=== PATIENT | male | born 1965 | race African-American/Black ===

== ENCOUNTER 2018-01-19 10:21 | Emergency (ER) | payer OTHER ==
[~2018-01-19] VITALS: Ht 167.6 cm; Wt 77.6 kg
--- NOTE | 2018-01-19 10:30 | NUR ---
PATIENT TO ED DT +SI WITH PLAN TO RUN IN TRAFFIC, -HI. SEEKS VOLUNTARY PLACEMENT. PATIENT NOT IN DISTRESS. VSS
--- NOTE | 2018-01-19 10:36 | NUR ---
NIKITA AT [facility] STATES THAT THERE ARE [facility]ALE BEDS AVAILABLE FOR THIS PT WHEN HE IS MEDICALLY CLEARED
[2018-01-19 11:09] LABS: APPEARANCE,URINE Clear (CLEAR); BILIRUBIN,URINE Negative (NEGATIVE); BLOOD, URINE Negative Ery/uL (NEGATIVE); COLOR,URINE Yellow (YELLOW); KETONES,URINE Negative (NEGATIVE); LEUKOCYTE ESTERASE ,URINE Negative (NEGATIVE); NITRITE, URINE Negative (NEGATIVE); PH,URINE 6.5 (5.0-8.0); PROTEIN,URINE Negative (NEGATIVE); UGLUCOSE Negative (NEGATIVE); UROBILINOGEN,URINE 0.2 EU/dL (0.2)
[2018-01-19 11:11] LABS: BASOPHILS # (AUTO) 0.1 /CMM (0.0-0.2); BASOPHILS % (AUTO) 3.1 % (0.0-2.0); EOSINOPHILS % (AUTO) 0.1 % (0.0-6.0); HEMATOCRIT 41 % (39-51); HEMOGLOBIN 13.6 g/dL (13.5-17.5); LYMPHOCYTES # (AUTO) 1.4 /CMM (0.8-4.8); LYMPHOCYTES % (AUTO) 33.2 % (20.0-44.0); MEAN CORPUSCULAR HEMOGLOBIN 30 PG (26.0-33.0); MEAN CORPUSCULAR HGB CONC 34 g/dl (31.0-36.0); MEAN CORPUSCULAR VOLUME 89 fL (80-96); MONOCYTES # (AUTO) 0.4 /CMM (0.1-1.30); MONOCYTES % (AUTO) 9.9 % (2.0-12.0); NEUTROPHILS # (AUTO) 2.3 /CMM (1.8-8.9); NEUTROPHILS % (AUTO) 53.7 % (43.0-81.0); PLATELET COUNT (AUTO) 369 /CMM (150-450); RDW COEFFICIENT OF VARIATION 13.8 (11.5-15.0); RED BLOOD CELL COUNT(AUTO) 4.58 MIL/uL (4.5-6.0); WHITE BLOOD COUNT (AUTO) 4.2 K/uL (4.3-11.0)
[2018-01-19 11:15] LABS: CALCIUM, SERUM 8.9 mg/dL (8.5-10.1); CARBON DIOXIDE 33 mmol/L (21-32); CHLORIDE 99 mmol/L (98-107); CREATININE 1.1 mg/dL (0.6-1.3); GLUCOSE 88 mg/dL (74-106); POTASSIUM 3.4 mmol/L (3.5-5.1); SODIUM SERUM 135 mmol/L (136-145); UREA NITROGEN, BLOOD 11 mg/dL (7-18)
--- NOTE | 2018-01-19 11:19 | NUR ---
CALLED FOR FOOD
[2018-01-19 11:21] LABS: ALANINE AMINOTRANSFERASE 55 U/L (12-78); ALBUMIN 3.7 g/dL (3.4-5.0); ALCOHOL, BLOOD < 3 mg/dL (0-0); ALKALINE PHOSPHATASE 80 U/L (46-116); ASPARTATE AMINOTRANSFERASE 46 U/L (15-37); BILIRUBIN,DIRECT 0.2 mg/dL (0.0-0.2); BILIRUBIN,TOTAL 0.7 mg/dL (0.2-1.0); TOTAL PROTEIN, SERUM 8.5 g/dL (6.4-8.2)
[2018-01-19] MEDS ORDERED: IBUPROFEN 600 MG TABLET PO ONE ×2 (11:56→12:00)
--- NOTE | 2018-01-19 13:02 | NUR ---
CALLED [facility] AND FAXED OVER PAPERWORK TO [facility] IN INTAKE.
--- NOTE | 2018-01-19 13:20 | NUR ---
PT HAS BEEN ACCEPTED TO [facility]. DR SNOW IS THE ACCEPTING MD. NUMBER FOR REPORT IS [phone]
[2018-01-19] MEDS ORDERED: POTASSIUM CHLORIDE 20 MEQ TAB.PRT.SR PO ONE ×2 (13:30→13:31)
--- NOTE | 2018-01-19 13:30 | NUR ---
CALLED [facility] AND SPOKE TO [facility]ARD FOR TANSPORT TO [facility], WAS GIVEN AN ETA OF 30 MIN. TRIP #:
[2018-01-19 13:32] VITALS: BP 128/85
--- NOTE | 2018-01-19 13:39 | NUR ---
REPORT GIVEN TO BLANCHE LUGO FOR [facility]
--- NOTE | 2018-01-19 14:22 | NUR ---
PATIENT WAS PICKED UP BY [facility]
== END 2018-01-19 14:24 | disposition home or self-care (01) ==
LOC: ER 10:22
DX: R45.851 Suicidal ideations (principal); F14.10 Cocaine abuse, uncomplicated; F32.9 Major depressive disorder, single episode, unspecified; I10 Essential (primary) hypertension; J45.909 Unspecified asthma, uncomplicated; F17.200 Nicotine dependence, unspecified, uncomplicated
CPT/HCPCS: 36415; 80048; 80076; 80305; 81001; 85025; 99284; A4606; G0480; Z7610; 81000-TC

== ENCOUNTER 2019-05-11 22:44 | Emergency (ER) | payer OTHER ==
[~2019-05-11] VITALS: Ht 170.2 cm; Wt 77.1 kg
[2019-05-12 02:20] VITALS: BP 155/98
--- NOTE | 2019-05-12 02:20 | NUR ---
PT AAOX4. AMBULATORY. C/O +SI X3DAYS, PLAN TO RUN INTO TRAFFIC, -HI, +AUDITORY HALLUCINATIONS. PT PLACED IN GOWN, BELONINGS IN LOCKER. VSS.
--- NOTE | 2019-05-12 02:37 | NUR ---
URINE COLLECTED AND LABS.
[2019-05-12 02:43] LABS: BASOPHILS % (AUTO) 1.2 % (0.0-2.0); EOSINOPHILS % (AUTO) 0.3 % (0.0-6.0); HEMATOCRIT 37 % (39-51); HEMOGLOBIN 12.6 g/dL (13.5-17.5); LYMPHOCYTES # (AUTO) 1.2 /CMM (0.8-4.8); LYMPHOCYTES % (AUTO) 43.2 % (20.0-44.0); MEAN CORPUSCULAR HGB CONC 34 g/dl (31.0-36.0); MEAN CORPUSCULAR VOLUME 91 fL (80-96); MONOCYTES # (AUTO) 0.4 /CMM (0.1-1.30); MONOCYTES % (AUTO) 15.6 % (2.0-12.0); NEUTROPHILS # (AUTO) 1.1 /CMM (1.8-8.9); NEUTROPHILS % (AUTO) 39.7 % (43.0-81.0); PLATELET COUNT (AUTO) 219 /CMM (150-450); RED BLOOD CELL COUNT(AUTO) 4.09 MIL/uL (4.5-6.0); WHITE BLOOD COUNT (AUTO) 2.7 K/uL (4.3-11.0)
[2019-05-12 02:46] LABS: APPEARANCE,URINE CLEAR (CLEAR); BILIRUBIN,URINE NEGATIVE (NEGATIVE); BLOOD, URINE SMALL Ery/uL (NEGATIVE); COLOR,URINE YELLOW (YELLOW); KETONES,URINE NEGATIVE (NEGATIVE); LEUKOCYTE ESTERASE ,URINE NEGATIVE (NEGATIVE); NITRITE, URINE NEGATIVE (NEGATIVE); PROTEIN,URINE 100 mg/dl (NEGATIVE); UGLUCOSE NEGATIVE (NEGATIVE); UROBILINOGEN,URINE 0.2 EU/dL (0.2)
[2019-05-12 02:53] LABS: CALCIUM, SERUM 8.6 mg/dL (8.5-10.1); CREATININE 0.9 mg/dL (0.6-1.3); POTASSIUM 3.6 mmol/L (3.5-5.1)
[2019-05-12 02:58] LABS: ALBUMIN 3.6 g/dL (3.4-5.0); BILIRUBIN,DIRECT 0.2 mg/dL (0.0-0.2); BILIRUBIN,TOTAL 0.5 mg/dL (0.2-1.0); TOTAL PROTEIN, SERUM 8.5 g/dL (6.4-8.2)
[2019-05-12 03:07] LABS: SALICYLATE 0.6 mg/dL (2.8-20.0)
[2019-05-12 03:53] LABS: BACTERIA,URINE Few /HPF (None Seen); SQUAMOUS EPITHELIAL CELL,UR Rare /HPF (None Seen); WBC,URINE 0-2 /HPF (0-3)
[2019-05-12 04:05] LABS: LYMPHOCYTES % (MANUAL) 55 % (16-48); NEUTROPHILS % (MANUAL) 35 (42-76)
[2019-05-12 04:06] LABS: MONOCYTES % (MANUAL) 10 % (0-11.0)
--- NOTE | 2019-05-12 06:50 | NUR ---
Pt requesting to be discharged home. Pt denies any suicidal ideation or homicidal ideation. Dr Huston notified. Pt ok to be discharged per Dr Huston.
--- NOTE | 2019-05-12 07:14 | NUR ---
Patient given written and verbal discharge instructions. Patient verbalizes understanding of instructions. Patient is ambulatory with steady gait. Refuses offer of alf placement. Patient given list of available shelters in surrounding area.
== END 2019-05-12 07:25 | disposition home or self-care (01) ==
LOC: ER 22:44
DX: F39 Unspecified mood [affective] disorder (principal); I10 Essential (primary) hypertension; J45.909 Unspecified asthma, uncomplicated; F32.9 Major depressive disorder, single episode, unspecified; F17.200 Nicotine dependence, unspecified, uncomplicated; Z59.0 Homelessness
CPT/HCPCS: 36415; 80048; 80076; 80305; 80307 ×2; 80329; 81001; 85025; 99284; G0480; 81000-TC

== ENCOUNTER 2019-06-07 23:59 | Emergency (ER) | payer OTHER ==
[~2019-06-07] VITALS: Ht 167.6 cm; Wt 76.2 kg
--- NOTE | 2019-06-08 00:05 | NUR ---
TO ER BED 12 AMBULATORY C/O SI WITH PLAN TO RUN INTO TRAFFIC. DENIES HI. PT ALSO C/O HEADACHE, HTN AND DIZZINESS X4 DAYS. ADMITS TO MARIJUANA AND ETOH YESTERDAY. PT AAOX4 NO ACUTE DISTRESS NOTED, RESP EVEN AND UNLABORED. PT CALM AND COOPERATIVE AT THIS TIME. PLACE PT ON HOSPITAL GOWN, ALL BELONGINGS REMOEVD FROM ROOM. 1:1 SITTER AT BEDSIDE FOR PT SAFETY.
--- NOTE | 2019-06-08 01:15 | NUR ---
URINE SAMPLE COLLECTED AND SENT TO LAB.
--- NOTE | 2019-06-08 01:25 | NUR ---
BLOOD DRAWN BY ELEMENTARY LIBRARIAN.
[2019-06-08 01:36] LABS: BASOPHILS % (AUTO) 0.8 % (0.0-2.0); EOSINOPHILS % (AUTO) 1.6 % (0.0-6.0); HEMATOCRIT 37 % (39-51); HEMOGLOBIN 12.7 g/dL (13.5-17.5); LYMPHOCYTES # (AUTO) 1.9 /CMM (0.8-4.8); LYMPHOCYTES % (AUTO) 50.5 % (20.0-44.0); MEAN CORPUSCULAR HGB CONC 34 g/dl (31.0-36.0); MEAN CORPUSCULAR VOLUME 90 fL (80-96); MONOCYTES # (AUTO) 0.5 /CMM (0.1-1.30); MONOCYTES % (AUTO) 13.9 % (2.0-12.0); NEUTROPHILS # (AUTO) 1.2 /CMM (1.8-8.9); NEUTROPHILS % (AUTO) 33.2 % (43.0-81.0); PLATELET COUNT (AUTO) 270 /CMM (150-450); RED BLOOD CELL COUNT(AUTO) 4.14 MIL/uL (4.5-6.0); WHITE BLOOD COUNT (AUTO) 3.7 K/uL (4.3-11.0)
[2019-06-08 01:39] LABS: APPEARANCE,URINE Clear (CLEAR); BILIRUBIN,URINE Negative (NEGATIVE); BLOOD, URINE Trace-intact Ery/uL (NEGATIVE); COLOR,URINE Yellow (YELLOW); KETONES,URINE Negative (NEGATIVE); LEUKOCYTE ESTERASE ,URINE Negative (NEGATIVE); NITRITE, URINE Negative (NEGATIVE); PH,URINE 6.5 (5.0-8.0); PROTEIN,URINE Negative (NEGATIVE); UGLUCOSE Negative (NEGATIVE); UROBILINOGEN,URINE 0.2 EU/dL (0.2)
[2019-06-08 01:42] LABS: CALCIUM, SERUM 8.9 mg/dL (8.5-10.1); CARBON DIOXIDE 32 mmol/L (21-32); CHLORIDE 99 mmol/L (98-107); CREATININE 0.9 mg/dL (0.6-1.3); GLUCOSE 88 mg/dL (74-106); POTASSIUM 3.7 mmol/L (3.5-5.1); SODIUM SERUM 136 mmol/L (136-145); UREA NITROGEN, BLOOD 16 mg/dL (7-18)
[2019-06-08 01:55] LABS: ALANINE AMINOTRANSFERASE 203 U/L (12-78); ALBUMIN 3.5 g/dL (3.4-5.0); ALCOHOL, BLOOD < 3 mg/dL (0-0); ALKALINE PHOSPHATASE 127 U/L (46-116); ASPARTATE AMINOTRANSFERASE 160 U/L (15-37); BILIRUBIN,DIRECT 0.1 mg/dL (0.0-0.2); BILIRUBIN,TOTAL 0.5 mg/dL (0.2-1.0); TOTAL PROTEIN, SERUM 8.3 g/dL (6.4-8.2)
[2019-06-08 01:56] LABS: ACETAMINOPHEN 0 ug/ml (10-30); SALICYLATE 0.9 mg/dL (2.8-20.0)
[2019-06-08 02:38] LABS: BACTERIA,URINE Few /HPF (None Seen); SQUAMOUS EPITHELIAL CELL,UR Rare /HPF (None Seen); WBC,URINE 0-2 /HPF (0-3)
--- NOTE | 2019-06-08 02:44 | NUR ---
PT ASLEEP, NO ACUTE DISTRESS NOTED, RESP EVEN AND UNLABORED. CALL LIGHT WITHIN REACH. WILL CONTINUE TO MONITOR PT CLOSELY.
[2019-06-08] MEDS ORDERED: CLONIDINE HCL 0.1 MG TABLET ONE (03:15)
[2019-06-08] MEDS ORDERED: CLONIDINE HCL 0.1 MG TABLET PO ONE (03:30)
--- NOTE | 2019-06-08 06:08 | NUR ---
PT ACCEPTED [facility] ACCEPTING MD: DR. SNOW UNIT 1 NUMBER FOR REPORT: [phone]
--- NOTE | 2019-06-08 06:25 | NUR ---
CALLED CALL THE CAR FOR TRANSPORTATION. ETA [phone] WITH [facility]. TRIP #[id number]
--- NOTE | 2019-06-08 07:27 | NUR ---
ATTEMPTED TO GIVE REPORT TO [facility]. CHANGE OF SHIFT, REQUESTING TO CALL BACK LATER
--- NOTE | 2019-06-08 07:35 | NUR ---
[facility]
--- NOTE | 2019-06-08 07:39 | NUR ---
REPORT GIVEN TO EMT FOR PT TRANSFER TO [facility].
[2019-06-08 07:48] VITALS: BP 148/100
== END 2019-06-08 07:49 ==
LOC: ER 23:59
DX: R45.851 Suicidal ideations (principal); R51 Headache; I10 Essential (primary) hypertension; J45.909 Unspecified asthma, uncomplicated; F32.9 Major depressive disorder, single episode, unspecified; F10.10 Alcohol abuse, uncomplicated; F17.200 Nicotine dependence, unspecified, uncomplicated; Y90.0 Blood alcohol level of less than 20 mg/100 ml
CPT/HCPCS: 36415; 80048; 80076; 80305; 80307; 80329; 81001; 85025; 99285; G0480; 81000-TC

== ENCOUNTER 2019-09-10 18:40 | Emergency (ER) | payer OTHER ==
[~2019-09-10] VITALS: Ht 167.6 cm; Wt 68.9 kg
[2019-09-10 18:47] VITALS: BP 163/98
--- NOTE | 2019-09-10 18:55 | NUR ---
Patient awake non distress noted able to ambulated to bathroom
[2019-09-10] MEDS ORDERED: KETOROLAC TROMETHAMINE INJ 30 MG/ML VIAL ONE (19:07)
--- NOTE | 2019-09-10 19:16 | NUR ---
Patient discharged to home in stable condition. Written and verbal after care instructions given. Patient verbalizes understanding of instruction and RX. Pt ambulated with steady gait. Provided with food and daily essentials.
[2019-09-10] MEDS ORDERED: KETOROLAC TROMETHAMINE INJ 60 MG/2 ML VIAL IM ONE (19:30)
== END 2019-09-10 19:16 | disposition home or self-care (01) ==
LOC: ER 18:44
DX: K40.90 Unilateral inguinal hernia, without obstruction or gangrene, not specified as recurrent (principal); I10 Essential (primary) hypertension; J45.909 Unspecified asthma, uncomplicated
CPT/HCPCS: 96372; 99283; J1885

== ENCOUNTER 2019-10-02 16:38 | Emergency (ER) | payer OTHER ==
[~2019-10-02] VITALS: Ht 170.2 cm; Wt 70.8 kg
[2019-10-02 17:01] VITALS: BP 142/83
[2019-10-02] MEDS ORDERED: KETOROLAC TROMETHAMINE INJ 30 MG/ML VIAL ONE (17:56)
[2019-10-02] MEDS ORDERED: HYDROCODONE/APAP 5/325MG 1 EACH TABLET ONE (17:56)
[2019-10-02] MEDS ORDERED: ONDANSETRON 4 MG TAB.RAPDIS ONE (17:57)
[2019-10-02] MEDS ORDERED: ONDANSETRON 4 MG TAB.RAPDIS SL ONE (18:00)
[2019-10-02] MEDS ORDERED: KETOROLAC TROMETHAMINE INJ 60 MG/2 ML VIAL IM ONE (18:00)
[2019-10-02] MEDS ORDERED: HYDROCODONE/APAP 5/325MG 1 EACH TABLET PO ONE (18:00)
== END 2019-10-02 18:07 | disposition home or self-care (01) ==
LOC: ER 16:41
DX: K40.90 Unilateral inguinal hernia, without obstruction or gangrene, not specified as recurrent (principal); J45.909 Unspecified asthma, uncomplicated; I10 Essential (primary) hypertension
CPT/HCPCS: 96372; 99283; J1885; Q0162